=== PATIENT | male | born 2000 | race African-American/Black ===

== ENCOUNTER 2019-01-12 12:32 | Emergency (ER) | payer OTHER ==
[~2019-01-12] VITALS: Ht 193 cm; Wt 99.5 kg
[2019-01-12 12:33] VITALS: BP 158/71
[2019-01-12 15:11] LABS: CHLAMYDIA DNA AMPLIFICATION NEGATIVE (NEGATIVE); GC DNA AMPLIFICATION NEGATIVE (NEGATIVE)
== END 2019-01-12 13:15 | disposition home or self-care (01) ==
LOC: M ED 12:32
DX: Z11.3 Encounter for screening for infections with a predominantly sexual mode of transmission (principal)

== ENCOUNTER 2019-04-08 16:39 | Emergency (ER) | payer OTHER ==
[~2019-04-08] VITALS: Ht 193 cm; Wt 107.2 kg
[2019-04-08 16:39] VITALS: BP 137/80
== END 2019-04-08 20:25 | disposition left against medical advice (07) ==
LOC: M ED 16:39
DX: S79.922A Unspecified injury of left thigh, initial encounter (principal); W01.10XA Fall on same level from slipping, tripping and stumbling with subsequent striking against unspecified object, initial encounter; Y92.89 Other specified places as the place of occurrence of the external cause; Y93.02 Activity, running; Y99.1 Military activity; Z91.018 Allergy to other foods; Z53.21 Procedure and treatment not carried out due to patient leaving prior to being seen by health care provider

== ENCOUNTER 2019-06-04 20:19 | Emergency (ER) | payer OTHER ==
[~2019-06-04] VITALS: Ht 193 cm; Wt 94.5 kg
[2019-06-04] MEDS ORDERED: IBUPROFEN 800 MG TAB PO ONE (21:00)
--- NOTE | 2019-06-04 21:14 | REP ---
Clinical: Trauma. Technique: AP, lateral, bilateral oblique views right hand . Findings: The osseous structures and joint spaces are intact and normal. There is no evidence for acute fracture or dislocation. Surrounding soft tissues are unremarkable. No subcutaneous emphysema or radiodense foreign body. Impression: No acute fracture or dislocation. Electronically Signed by Bryce Brooks MD 06/04/2019 09:04 P
[2019-06-04 22:03] VITALS: BP 145/76
== END 2019-06-04 22:19 | disposition home or self-care (01) ==
LOC: M ED 20:19
DX: S60.221A Contusion of right hand, initial encounter (principal); Z91.018 Allergy to other foods; W22.03XA Walked into furniture, initial encounter; Y92.9 Unspecified place or not applicable; Y99.8 Other external cause status